=== PATIENT | female | born 1990 | race Caucasian/White ===

== ENCOUNTER 2019-07-16 10:30 | Inpatient (IN) | payer OTHER ==
[~2019-07-16] VITALS: Ht 160 cm; Wt 77.6 kg
[2019-07-16] MEDS ORDERED: PREN-217 PO (10:35)
[2019-07-16] MEDS ORDERED: RINGERS SOLUTION,LACTATED 1,000 ML IV ONE (10:36)
[2019-07-16] MEDS ORDERED: METHYLERGONOVINE MALEATE 0.2 MG/ML VIAL IM ONE (10:45)
[2019-07-16] MEDS ORDERED: CITRIC ACID/SODIUM CITRATE 30 ML SOLUTION UDCUP PO ONE (10:45)
[2019-07-16] MEDS ORDERED: METOCLOPRAMIDE HCL 5 MG/ML 2 ML VIAL IVP ONE (10:45)
[2019-07-16 11:13] VITALS: BP 111/61
[2019-07-16 11:14] LABS: BASOPHILS % (AUTO) 0.8 % (0.0-2.0); EOSINOPHILS % (AUTO) 0.6 % (1.0-6.0); HEMATOCRIT 38.9 % (36-46); HEMOGLOBIN 13.1 g/dL (12.0-16.0); LYMPHOCYTES # (AUTO) 1.4 K/uL (1.0-4.8); MEAN CORPUSCULAR HEMOGLOBIN 29.1 pg (26.0-34.0); MEAN CORPUSCULAR HGB CONC 33.7 G/dL (31.0-37.0); MEAN CORPUSCULAR VOLUME 86 fL (80-100); MONOCYTES # (AUTO) 0.3 K/uL (0.1-1.0); MONOCYTES % (AUTO) 3.6 % (2.0-9.0); NEUTROPHILS # (AUTO) 5.6 K/uL (1.8-7.7); PLATELET COUNT (AUTO) 165 K/uL (150-450); RED BLOOD CELL COUNT(AUTO) 4.51 MIL/uL (4.00-5.20); RED CELL DISTRIBUTION WIDTH 13.8 % (11.5-14.5)
[2019-07-16] MEDS ORDERED: INFLUENZA VIRUS VACCINE QVS 2019-20 (3YR+)/PF 60 MCG/0.5 ML SYRINGE IM ONE (12:15)
[2019-07-16] MEDS ORDERED: METHYLERGONOVINE MALEATE 0.2 MG/ML VIAL IM PRN (12:45)
[2019-07-16] MEDS ORDERED: MORPHINE SULFATE/PF 0.5 MG/ML 10 ML AMP ONE (13:36)
[2019-07-16] MEDS ORDERED: FentaNYL CITRATE-PF 100 MCG/2 ML VIAL ONE (13:36)
[2019-07-16] MEDS ORDERED: BUPIVACAINE HCL/DEX-WATER/PF 0.75% 2 ML AMP ONE (13:36)
[2019-07-16] MEDS ORDERED: ACETAMINOPHEN 1000 MG/ISO-OSM 100 ML IV ONE (13:36)
[2019-07-16] MEDS ORDERED: DiphenhydrAMINE HCL 50 MG/ML VIAL IVP PRN ×2 (14:15→14:45)
[2019-07-16] MEDS ORDERED: DEXAMETHASONE SOD PHOS 4 MG/ML VIAL IVP PRN (14:15)
[2019-07-16] MEDS ORDERED: ONDANSETRON HCL 4 MG/2 ML VIAL IVP PRN ×2 (14:15→14:45)
[2019-07-16] MEDS ORDERED: LANOLIN 7 GM OINTMENT TP PRN (14:45)
[2019-07-16] MEDS ORDERED: NALOXONE HCL 0.4 MG/ML VIAL IVP PRN (14:45)
[2019-07-16] MEDS ORDERED: MORPHINE SULFATE 10 MG/ML SYRINGE IVP PRN (14:45)
[2019-07-16] MEDS ORDERED: FentaNYL CITRATE-PF 100 MCG/2 ML VIAL IVP PRN (14:45)
[2019-07-16] MEDS ORDERED: ACETAMINOPHEN/CODEINE 300-30 MG TABLET PO PRN (14:45)
[2019-07-16] MEDS ORDERED: OXYGEN THERAPY IH SCH (20:00)
[2019-07-16] MEDS: OXYGEN THERAPY IH SCH ×2 (20:00)
[2019-07-16] MEDS: DEXTROSE 5%-0.45% SODIUM CHL 1,000 ML IV SCH (22:06)
[2019-07-16] MEDS: ACETAMINOPHEN 1000 MG/ISO-OSM 100 ML IV SCH (22:06)
[2019-07-17] MEDS: DEXTROSE 5%-0.45% SODIUM CHL 1,000 ML IV SCH ×3 (03:44→14:22)
[2019-07-17] MEDS: ACETAMINOPHEN 1000 MG/ISO-OSM 100 ML IV SCH (04:17)
[2019-07-17] MEDS: OXYGEN THERAPY IH SCH ×4 (08:00→20:00)
[2019-07-17] MEDS: MAGNESIUM HYDROXIDE SUSPENSION 30 ML UDCUP PO SCH ×2 (08:15→21:08)
[2019-07-17] MEDS: IBUPROFEN 800 MG TABLET PO SCH ×3 (08:15→21:08)
[2019-07-17] MEDS: ACETAMINOPHEN/CODEINE 300-30 MG TABLET PO PRN (16:03)
[2019-07-18] MEDS: IBUPROFEN 800 MG TABLET PO SCH ×4 (01:50→20:37)
[2019-07-18] MEDS ORDERED: 0.9% SODIUM CHLORIDE 10 ML VIAL IVP ONE (06:00)
[2019-07-18] MEDS ORDERED: OXYTOCIN 10 UNITS/ML VIAL IM ONE (06:00)
[2019-07-18] MEDS ORDERED: EPHEDrine SULFATE 50 MG/ML VIAL IM ONE (06:00)
[2019-07-18] MEDS: OXYGEN THERAPY IH SCH ×4 (08:00→20:00)
[2019-07-18] MEDS: MAGNESIUM HYDROXIDE SUSPENSION 30 ML UDCUP PO SCH ×2 (08:45→20:37)
[2019-07-18] MEDS: ACETAMINOPHEN/CODEINE 300-30 MG TABLET PO PRN (08:46)
[2019-07-19] MEDS: IBUPROFEN 800 MG TABLET PO SCH ×2 (02:41→08:50)
[2019-07-19] MEDS ORDERED: IBUP-2071 PO (10:33)
== END 2019-07-19 12:40 | disposition home or self-care (01) | DRG 785 ==
LOC: 4S 10:30 → PREOBSVTOIN 08-09 10:59
PROVIDERS: ADMIT Obstetrics & Gynecology; ATTEND Obstetrics & Gynecology
PROC: 10D00Z1 Extraction of Products of Conception, Low, Open Approach (ICD-10-PCS; principal; 2019-07-16)
PROC: 0UL70ZZ Occlusion of Bilateral Fallopian Tubes, Open Approach (ICD-10-PCS; 2019-07-16)
DX: O34.211 Maternal care for low transverse scar from previous cesarean delivery (principal); Z3A.39 39 weeks gestation of pregnancy; Z37.0 Single live birth
CPT/HCPCS: 86850; 86900; 86901; 87081; 88302; 90686; J0131; J0690; J2274; J2590; J2765; J3010; J3490